=== PATIENT | female | born 1960 | race Hispanic/Latino ===

== ENCOUNTER → 2020-12-21 | Outpatient (CLI) | payer OTHER | END | disposition home or self-care (01) | LOC: OIH 10:12 | PROVIDERS: ATTEND Family Medicine | DX: M19.032 Primary osteoarthritis, left wrist (principal); M47.816 Spondylosis without myelopathy or radiculopathy, lumbar region | CPT/HCPCS: 72100; 73100 ==

== ENCOUNTER → 2023-01-04 | Outpatient (CLI) | payer OTHER | END | disposition home or self-care (01) | LOC: RAH 11:08 | PROVIDERS: ATTEND Family Medicine | DX: Z12.31 Encounter for screening mammogram for malignant neoplasm of breast (principal) | CPT/HCPCS: 77067 ==

== ENCOUNTER → 2023-05-03 | Outpatient (CLI) | payer OTHER | END | disposition home or self-care (01) | LOC: RAH 10:51 | PROVIDERS: ATTEND Family Medicine | DX: R22.31 Localized swelling, mass and lump, right upper limb (principal) | CPT/HCPCS: 76641 ==

== ENCOUNTER → 2023-08-05 | Outpatient (CLI) | payer OTHER ==
[2023-08-05 12:09] LABS: BASOPHILS # (AUTO) 0.06 K/uL (0.00-0.20); EOSINOPHILS # (AUTO) 0.08 K/uL (0.00-0.70); EOSINOPHILS % (AUTO) 1.3 % (0.0-8.0); HEMATOCRIT 43.5 % (36-48); IMMATURE GRANULOCYTE ABSOLUTE 0.02 K/uL (0-1); LYMPHOCYTES # (AUTO) 2.1 K/uL (1.0-4.8); LYMPHOCYTES % (AUTO) 34.3 % (21.0-51.0); MEAN CORPUSCULAR HEMOGLOBIN 30.3 pg (27.0-33.0); MEAN CORPUSCULAR HGB CONC 32.4 g/dL (32.0-36.0); MEAN CORPUSCULAR VOLUME 93.5 fL (79-99); MONOCYTES # (AUTO) 0.4 K/uL (0.1-1.0); NEUTROPHILS # (AUTO) 3.5 K/uL (1.8-7.7); NEUTROPHILS % (AUTO) 57.1 % (40.0-77.0); PLATELET COUNT (AUTO) 177 K/uL (130-400); RED BLOOD CELL COUNT(AUTO) 4.65 MIL/uL (4.00-5.50); RED CELL DISTRIBUTION WIDTH 12.7 % (11.0-15.5); WHITE BLOOD COUNT (AUTO) 6.2 K/uL (4.8-10.8)
[2023-08-05 12:35] LABS: CREATININE 0.7 mg/dL (0.5-1.0); POTASSIUM 4.5 mmol/L (3.5-5.1); T4 (THYROXINE) 6.4 ug/dL (4.7-13.3); THYROID STIMULATING HORMONE 1.38 uIU/mL (0.36-3.74)
[2023-08-05 12:44] LABS: B-TYPE NATRIURETIC PEPTIDE < 5 pg/mL (0-100)
== END | disposition home or self-care (01) ==
LOC: LAB 10:45
PROVIDERS: ATTEND Internal Medicine Cardiovascular Disease
DX: R00.2 Palpitations (principal); R06.01 Orthopnea
CPT/HCPCS: 36415; 80048; 83735; 83880; 84436; 84443; 85025

== ENCOUNTER → 2023-10-01 | Outpatient (CLI) | payer OTHER ==
[2023-10-01 12:28] LABS: ALBUMIN 3.9 g/dL (3.5-5.0); BILIRUBIN,TOTAL 0.5 mg/dL (0.2-1.0); CREATININE 0.5 mg/dL (0.5-1.0); POTASSIUM 4.4 mmol/L (3.5-5.1); TOTAL PROTEIN, SERUM 7.8 g/dL (6.0-8.3)
== END | disposition home or self-care (01) ==
LOC: LAB 10:42
PROVIDERS: ATTEND Internal Medicine Cardiovascular Disease
DX: R06.01 Orthopnea (principal); R07.89 Other chest pain; R00.2 Palpitations; R53.83 Other fatigue
CPT/HCPCS: 36415; 80053; 80061

== ENCOUNTER → 2024-03-16 | Outpatient (CLI) | payer OTHER ==
--- NOTE | 2024-03-17 09:05 | HMCIMG ---
SCREENING MAMMOGRAM REASON: Annual Exam COMPARISON: 01/04/2023 TECHNIQUE: CC and MLO views of the bilateral breasts were performed.CAD was performed as well. FINDINGS: Parenchymal density: There are scattered areas of fibroglandular density. There are no focal mass lesions. There are no pathologic appearing calcifications. There is no evidence of architectural distortion or skin thickening. IMPRESSION: Normal screening mammogram The patient was entered into a reminder system with a target due date for their next mammogram. BI-RADS CATEGORY 1: NEGATIVE Recommend monthly self breast exam as well as annual clinical examination. A negative x-ray should not delay biopsy if a dominant or clinically suspicious mass is present, since 8-10% of cancers are not identified by mammography. Dense breasts particularly, may obscure an underlying neoplasm. Some of these may be detected clinically and therefore, clinical examination is an essential part of breast evaluation.
== END | disposition home or self-care (01) ==
LOC: RAH 14:54
PROVIDERS: ATTEND Family Medicine
DX: Z12.31 Encounter for screening mammogram for malignant neoplasm of breast (principal); R92.323 Mammographic fibroglandular density, bilateral breasts
CPT/HCPCS: 77067